=== PATIENT | male | born 1960 | race African-American/Black ===

== ENCOUNTER 2024-03-19 13:25 | Emergency (ER) | payer MEDICARE, MEDICAID ==
[~2024-03-19] VITALS: Ht 182.9 cm; Wt 80.0 kg
[2024-03-19] MEDS: SODIUM CHLORIDE 0.9% 1,000 ML IV ONE (13:45)
[2024-03-19] MEDS ORDERED: LEVETIRACETAM 1000MG PREMIX 100 ML IV ONE (13:45)
[2024-03-19 16:37] VITALS: BP 153/95; PULSE 104; RESP 22; TEMP 36.89184; O2SAT 100
[2024-03-19] MEDS: LEVETIRACETAM 1000MG PREMIX 100 ML IV NR (17:23)
[2024-03-20] MEDS ORDERED: AMLO10TA80 PO (14:57)
[2024-03-20] MEDS ORDERED: BUPR-113 PO (14:57)
[2024-03-20] MEDS ORDERED: LEVE500T19 PO (14:57)
[2024-03-20] MEDS ORDERED: METF-414 PO (14:57)
[2024-03-20] MEDS ORDERED: LORA-250 PO (14:57)
[2024-03-20] MEDS ORDERED: NIFE-71 PO (14:57)
[2024-03-20] MEDS ORDERED: RISP-28 PO (14:57)
[2024-03-20] MEDS ORDERED: OLAN10TA72 PO (14:57)
[2024-03-20] MEDS ORDERED: DIVA-75 PO (14:57)
[2024-03-20] MEDS ORDERED: CLON0.1T PO (14:57)
== END 2024-03-19 17:42 | disposition home or self-care (01) ==
LOC: ER 13:25
DX: R56.9 Unspecified convulsions (principal); E11.9 Type 2 diabetes mellitus without complications; I10 Essential (primary) hypertension; F31.9 Bipolar disorder, unspecified; Z86.59 Personal history of other mental and behavioral disorders
CPT/HCPCS: 99285; 96365; 96361; 70450; J1953; J7030

== ENCOUNTER 2024-05-07 07:39 | Emergency (ER) | payer MEDICARE, MEDICAID ==
[~2024-05-07] VITALS: Ht 190.5 cm; Wt 114.0 kg
[~2024-05-07 07:39] MED LIST: AMLO10TA80 PO; BUPR-113 PO; CLON0.1T PO; DIVA-75 PO; LEVE500T19 PO; LORA-250 PO; METF-414 PO; NIFE-71 PO; OLAN10TA72 PO; RISP-28 PO
[2024-05-07] MEDS: LEVETIRACETAM 500MG TABLET PO ONE (08:24)
[2024-05-07 08:31] VITALS: O2SAT 92
[2024-05-07] MEDS: MIDAZOLAM HCL 2 MG/2 ML VIAL IM ONE (08:31)
[2024-05-07 08:57] LABS: BASOPHILS % 0.1 % (0.0-2.0); CHLORIDE 109 mEq/L (98-107); HEMATOCRIT. 38.6 % (42.0-52.0); HEMOGLOBIN. 12.5 g/dL (14.0-18.0); LYMPHOCYTES % 19.9 % (20.0-50.0); MEAN CORPUSCULAR HEMOGLOBIN 31.4 pg (28.0-32.0); MEAN CORPUSCULAR HGB CONC 32.5 g/dL (31.0-37.0); MEAN CORPUSCULAR VOLUME 96.7 fL (80.0-94.0); MEAN PLATELET VOLUME 7.8 fl (7.4-10.4); MONOCYTES % 11.7 % (2.0-8.0); NEUTROPHILS % 66.3 % (40.0-76.0); PLATELET 279 x1000/uL (130-400); POTASSIUM 3.6 mEq/L (3.5-5.1); RED BLOOD CELL COUNT 3.99 mill/uL (4.7-6.1); RED CELL DISTRIBUTION WIDTH 15.3 % (11.6-14.6); SODIUM 144 mEq/L (136-145); WHITE BLOOD COUNT 6.8 x1000/uL (4.5-11.0)
[2024-05-07 08:58] LABS: CALCIUM 9.5 mg/dL (8.7-10.4); CARBON DIOXIDE 26 mEq/L (21-32)
[2024-05-07 09:03] LABS: CREATININE 1.1 mg/dL (0.6-1.3); GLUCOSE 124 mg/dL (70-105); UREA NITROGEN BLOOD 23 mg/dL (9-23)
[2024-05-07 09:05] LABS: ACETAMINOPHEN < 2 ug/mL (10-30); ALANINE AMINOTRANSFERASE 25 IU/L (10-49); ALBUMIN 4.3 g/dL (3.2-4.8); ASPARTATE AMINOTRANSFERASE 41 IU/L (<34); BILIRUBIN DIRECT 0.2 mg/dL (<=3.0)
[2024-05-07 09:06] LABS: BILIRUBIN TOTAL 0.5 mg/dL (0.1-1.0); PROTEIN TOTAL 7.7 g/dL (6.0-8.3)
[2024-05-07 09:10] LABS: ETHANOL BLOOD < 10 mg/dL (<10)
[2024-05-07] MEDS: ACETAMINOPHEN 325MG TABLET PO ONE (11:38)
[2024-05-07 13:50] LABS: CLARITY URINE CLEAR (CLEAR); COLOR URINE DARK YELLOW (YELLOW); GLUCOSE URINE NEGATIVE (NEGATIVE); KETONES URINE NEGATIVE (NEGATIVE); LEUKOCYTE ESTERASE URINE NEGATIVE (NEGATIVE); NITRITE URINE NEGATIVE (NEGATIVE); OCCULT BLOOD URINE NEGATIVE (NEGATIVE); PH URINE 5.5 (4.5-8.0); PROTEIN URINE 1+ (NEGATIVE); SPECIFIC GRAVITY URINE 1.029 (1.005-1.030)
[2024-05-07 14:11] LABS: *AMPHETAMINES SCREEN URINE PRESUMPTIVE POSITIVE (NEGATIVE); *BARBITURATES SCREEN URINE NEGATIVE (NEGATIVE); *BENZODIAZEPINES SCREEN URINE PRESUMPTIVE POSITIVE (NEGATIVE); *COCAINE SCREEN URINE NEGATIVE (NEGATIVE); CANNABINOID URINE SCREEN PRESUMPTIVE POSITIVE (NEGATIVE); ECSTASY MDMA SCREEN URINE CONF.TEST INDICATED (NEGATIVE); METHADONE URINE SCREEN NEGATIVE (NEGATIVE); OPIATES URINE SCREEN NEGATIVE (NEGATIVE); PHENCYCLIDINE URINE SCREEN NEGATIVE (NEGATIVE)
[2024-05-07 14:30] LABS: SQUAMOUS EPITHELIAL CELL URINE RARE /lpf (RARE/1+)
[2024-05-07 14:31] LABS: BACTERIA URINE TRACE; WBC URINE 0-2 /hpf (0-2)
[2024-05-07 14:32] LABS: RBC URINE NONE SEEN /hpf (0-2)
[2024-05-07] MEDS: IBUPROFEN 800MG TABLET PO SCH (17:32)
[2024-05-08] MEDS: HYDROCODONE/ACETAMINOPHEN 5/325MG TABLET PO NR (03:16)
[2024-05-08] MEDS: IBUPROFEN 400MG TABLET PO ONE (09:08)
[2024-05-08 14:20] VITALS: BP 135/74; PULSE 88; RESP 18; TEMP 36.72516; O2SAT 92
== END 2024-05-08 14:35 ==
LOC: ER 07:46
DX: R45.851 Suicidal ideations (principal); R56.9 Unspecified convulsions; E11.9 Type 2 diabetes mellitus without complications; F17.200 Nicotine dependence, unspecified, uncomplicated; F20.9 Schizophrenia, unspecified; I10 Essential (primary) hypertension; Z79.899 Other long term (current) drug therapy; Z20.822 Contact with and (suspected) exposure to COVID-19; Z88.8 Allergy status to other drugs, medicaments and biological substances
CPT/HCPCS: 80076; 80305; 80048; 81003; 80307; 80329; 80320; 85025; 36415; 70450; 93005; 96372; 99291; 87426; J2250; G0480

== ENCOUNTER 2024-08-28 02:39 | Emergency (ER) | payer MEDICARE, MEDICAID ==
[~2024-08-28] VITALS: Ht 182.9 cm; Wt 104.0 kg
[2024-08-28 02:41] VITALS: O2SAT 98
[2024-08-28 04:09] LABS: BASOPHILS % 0.5 % (0.0-2.0); HEMATOCRIT. 36.7 % (42.0-52.0); HEMOGLOBIN. 11.9 g/dL (14.0-18.0); LYMPHOCYTES % 31.4 % (20.0-50.0); MEAN CORPUSCULAR HEMOGLOBIN 30.5 pg (28.0-32.0); MEAN CORPUSCULAR HGB CONC 32.4 g/dL (31.0-37.0); MEAN CORPUSCULAR VOLUME 94.1 fL (80.0-94.0); MEAN PLATELET VOLUME 7.4 fl (7.4-10.4); MONOCYTES % 11.8 % (2.0-8.0); NEUTROPHILS % 52.3 % (40.0-76.0); PLATELET 370 x1000/uL (130-400); WHITE BLOOD COUNT 4.9 x1000/uL (4.5-11.0)
[2024-08-28] MEDS ORDERED: CLONIDINE 0.2MG TABLET PO ONE (04:15)
[2024-08-28 04:20] LABS: CARBON DIOXIDE 26 mEq/L (21-32); CHLORIDE 102 mEq/L (98-107); SODIUM 137 mEq/L (136-145)
[2024-08-28 04:21] LABS: CALCIUM 9.6 mg/dL (8.7-10.4); CLARITY URINE CLEAR (CLEAR); COLOR URINE YELLOW (YELLOW); GLUCOSE URINE NEGATIVE (NEGATIVE); KETONES URINE NEGATIVE (NEGATIVE); LEUKOCYTE ESTERASE URINE NEGATIVE (NEGATIVE); NITRITE URINE NEGATIVE (NEGATIVE); OCCULT BLOOD URINE NEGATIVE (NEGATIVE); PH URINE 5.5 (4.5-8.0); PROTEIN URINE NEGATIVE (NEGATIVE); SPECIFIC GRAVITY URINE 1.014 (1.005-1.030); UROBILINOGEN URINE 0.2 E.U./dL (0.2-1.0)
[2024-08-28 04:26] LABS: *AMPHETAMINES SCREEN URINE PRESUMPTIVE POSITIVE (NEGATIVE); *BARBITURATES SCREEN URINE NEGATIVE (NEGATIVE); *BENZODIAZEPINES SCREEN URINE NEGATIVE (NEGATIVE); *COCAINE SCREEN URINE NEGATIVE (NEGATIVE); CANNABINOID URINE SCREEN NEGATIVE (NEGATIVE); CREATININE 1.2 mg/dL (0.6-1.3); ECSTASY MDMA SCREEN URINE CONF.TEST INDICATED (NEGATIVE); ETHANOL BLOOD < 10 mg/dL (<10); GLUCOSE 103 mg/dL (70-105); METHADONE URINE SCREEN NEGATIVE (NEGATIVE); OPIATES URINE SCREEN NEGATIVE (NEGATIVE); PHENCYCLIDINE URINE SCREEN NEGATIVE (NEGATIVE); UREA NITROGEN BLOOD 19 mg/dL (9-23)
[2024-08-28 04:28] LABS: ACETAMINOPHEN < 2 ug/mL (10-30)
[2024-08-28] MEDS: CLONIDINE 0.1MG TABLET PO NR (04:32)
[2024-08-28] MEDS: LEVETIRACETAM 500MG TABLET PO ONE (04:32)
[2024-08-28] MEDS: RISPERIDONE 0.5MG TABLET PO SCH (18:06)
[2024-08-28] MEDS: CLONIDINE 0.1MG TABLET PO SCH (18:06)
[2024-08-28] MEDS: LEVETIRACETAM 500MG TABLET PO SCH (18:06)
[2024-08-29] MEDS ORDERED: BUPROPION HCL 75MG TABLET PO ONE (11:45)
[2024-08-29] MEDS: BUPROPION HCL 100MG SR TABLET PO NR ×2 (12:21→21:53)
[2024-08-29] MEDS: IBUPROFEN 600MG TABLET PO ONE (17:54)
[2024-08-29] MEDS ORDERED: BUPROPION HCL 150MG TABLET XL 24HR PO ONE (21:30)
[2024-08-30] MEDS: IBUPROFEN 600MG TABLET PO ONE (05:40)
[2024-08-30] MEDS: BUPROPION HCL 100MG SR TABLET PO ONE (09:53)
[2024-08-30] MEDS: OLANZAPINE 5MG TABLET ODT PO ONE (09:54)
[2024-08-30] MEDS ORDERED: CLONIDINE 0.2MG TABLET PO ONE ×2 (17:00→21:15)
[2024-08-30] MEDS: CLONIDINE 0.1MG TABLET PO NR ×2 (17:06→21:50)
[2024-08-30] MEDS ORDERED: BUPROPION HCL 75MG TABLET PO ONE (21:15)
[2024-08-30] MEDS: BUPROPION HCL 100MG SR TABLET PO NR (21:50)
[2024-08-31] MEDS: OLANZAPINE 10 MG/VIAL IM ONE (01:23)
[2024-08-31 06:30] VITALS: BP 169/95; PULSE 95; RESP 18; TEMP 36.9; O2SAT 99
[2024-08-31] MEDS: AMLODIPINE 5MG TABLET PO ONE (06:30)
== END 2024-08-31 08:04 ==
LOC: ER 02:39
DX: R45.851 Suicidal ideations (principal); E11.9 Type 2 diabetes mellitus without complications; F17.200 Nicotine dependence, unspecified, uncomplicated; F25.0 Schizoaffective disorder, bipolar type; I10 Essential (primary) hypertension; Z79.899 Other long term (current) drug therapy; Z88.6 Allergy status to analgesic agent; Z91.148 Patient's other noncompliance with medication regimen for other reason; Z20.822 Contact with and (suspected) exposure to COVID-19
CPT/HCPCS: 99285; 87426; 80048; 80307; 85025; 36415; 93005; 81003; G0480; J3490; 80305; 80320; 80329